=== PATIENT | male | born 1975 | race Caucasian/White ===

== ENCOUNTER 2024-09-28 08:34 | Inpatient (IN) | payer MEDICAID ==
[~2024-09-28] VITALS: Ht 175.3 cm; Wt 71.3 kg
[2024-09-28 10:07] LABS: Hematocrit 48.9 % (41.0-53.0); Hemoglobin 16.8 g/dL (13.5-17.5); Mean Corpuscular Hemoglobin 31.1 pg (28.0-32.0); Mean Corpuscular Hgb Conc. 34.4 g/dL (32.0-36.0); Mean Corpuscular Volume 90.2 fL (80.0-100.0); Platelet Count (auto) 230 10^3/uL (140-450); Red Blood Cells 5.42 10^6/uL (4.5-5.90); Red Cell Distribution Width 13.6 % (11.8-14.3); White Blood Cell 17.4 10^3/uL (4.4-10.8)
[2024-09-28 10:11] LABS: Basophils % (manual) 0 (0.0-2.0); Blast Cells 0; Eosinophils % (manual) 0 (0-7); Metamyelocytes % 0; Myelocytes % 0; Promyelocytes % 0; Reactive Lymphocytes 0
[2024-09-28 10:24] LABS: Calcium 9.5 mg/dL (8.7-10.4)
[2024-09-28 10:25] LABS: Anion Gap 14 (5-15); Carbon Dioxide 22 mmol/L (20-31)
[2024-09-28 10:30] LABS: BUN/Creatinine Ratio 14.6 (10.0-20.0); Blood Urea Nitrogen 18 mg/dL (9-23)
[2024-09-28 10:34] LABS: Chloride 102 mmol/L (98-107); Glucose 221 mg/dL (74-106); Potassium 3.9 mmol/L (3.5-5.1); Sodium 138 mmol/L (136-145)
[2024-09-28 10:46] LABS: Band Neutrophils % (manual) 12; Lymphocytes % (manual) 6 (10.0-50.0); Monocytes % (manual) 3 (0-12); Platelet Estimate Adequate
--- NOTE | 2024-09-28 11:19 | ED.PDOC ---
GI ASSESSMENT HPI Comments 49 year old male presents to the ED with a chief complaint of abdominal pain onset 1 day. Patient has been experiencing diffused abdominal pain as well as nausea/vomiting, diarrhea for the past day. Patient noticed symptoms worsen this morning, came to ED. Denies any PMHx as well as chest pain, dizziness, headache, fever, chills, cough, congestion, dysuria, hematuria. No other symptoms or modifying factors present at this time. Chief Complaint: Abdominal Pain Time Seen by MD: 10:05 Primary Care Provider: NONE Reviewed Notes: Medications, Allergies Allergies: Coded Allergies: NO KNOWN ALLERGIES (Unverified , 09/28/24) Information Source: Patient Mode of Arrival: Ambulatory Timing: Days Duration: Since onset Prehospital treatment: None Quality: Sharp Severity: Moderate Recent: None Recent Hx of: None Pain Location: Diffuse Modifying Factors: Nothing Associated sign and symptoms: Nausea, Vomiting, Diarrhea, Abdominal Pain Past Medical History PAST MEDICAL HISTORY: Denies Surgical History: Denies all surgeries Family History Family History: Reviewed,noncontributory to illness, No family hx of Cancer, No family hx of DM, No family hx of Heart josue, No family hx of HTN, No family hx ofKidney josue, No family hx of Liver josue, No family hx of Lung josue, No family hx of Stroke Social History Smoker: Non-Smoker Alcohol: Denies ETOH Use Drugs: Denies Drug Use Lives In: Home Constitutional: denies: chills, diaphoresis, fatigue, fever, malaise, sweats, weakness, others EENTM: denies: blurred vision, double vision, ear bleeding, ear discharge, ear drainage, ear pain, ear ringing, eye pain, eye redness, hearing loss, mouth pain, mouth swelling, nasal discharge, nose bleeding, nose congestion, nose pain, photophobia, tearing, throat pain, throat swelling, voice changes, others Respiratory: denies: cough, hemoptysis, orthopnea, SOB at rest, shortness of breath, SOB with excertion, stridor, wheezing, others Cardiovascular: denies: chest pain, dizzy spells, diaphoresis, Dyspnea on exertion, edema, irregular heart beat, left arm pain, lightheadedness, palpitations, PND, syncope, others Gastrointestinal: reports: abdominal pain, diarrhea, nausea, vomiting; denies: abdomen distended, blood streaked bowels, constipated, dysphagia, difficulty swallowing, hematemesis, melena, poor appetite, poor fluid intake, rectal bleeding, rectal pain, others Genitourinary: denies: burning, dysuria, flank pain, frequency, hematuria, incontinence, penile discharge, penile sore, pain, testicle pain, testicle swelling, urgency, others Neurological: denies: dizziness, fainting, headache, left sided numbness, left sided weakness, numbness, paresthesia, pre-existing deficit, right sided numbness, right sided weakness, seizure, speech problems, tingling, tremors, weakness, others Musculoskeletal: denies: back pain, gout, joint pain, joint swelling, muscle pain, muscle stiffness, neck pain, others Integumetry: denies: bruises, change in color, change in hair/nails, dryness, laceration, lesions, lumps, rash, wounds, others Allergic/Immunocompromised: denies: Difficulty Healing, Frequent Infections, Hives, Itching, others Hematologic/Lymphatic: denies: anemia, blood clots, easy bleeding, easy bruising, swollen glands, others Endocrine: denies: excessive hunger, excessive sweating, excessive thirst, excessive urination, flushing, intolerance to cold, intolerance to heat, unexplained weight gain, unexplained weight loss, others Psychiatric: denies: anxiety, bipolar disorder, depression, hopeless, panic disorder, schizophrenia, sleepless, suicidal, others All Other Systems: Reviewed and Negative Physical Exam General Appearance: Normal HEENT: Normal ENT Inspection, Pharynx Normal, TMs Normal Neck: Full Range of Motion, Non-Tender, Normal, Normal Inspection Respiratory: Chest Non-Tender, Lungs Clear, No Accessory Muscle Use, No Respiratory Distress, Normal Breath Sounds Cardiovascular: No Edema, No JVD, No Murmur, No Gallop, Normal Peripheral Pulses, Regular Rate/Rhythm Breast Exam: Deferred Gastrointestinal: No Organomegaly, Non Tender, No Pulsatile Mass, Normal Bowel Sounds, Soft Genitalia: Deferred Pelvic: Deferred Rectal: Deferred Extremities: No calf tenderness, Normal capillary refill, Normal inspection, Normal range of motion, Non-tender, No pedal edema Musculoskeletal : Apperance: Normal 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 Was a procedure done?: No GI differential Dx Differential Diagnosis: Appendicitis, Cholecystitis, Gastritis/PUD, Gastroenteritis, UTI, Dehydration X-Ray, Labs, Meds, VS Vital Signs Date Time Temp Pulse Resp B/P (MAP) Pulse Ox O2 Delivery O2 Flow Rate FiO2 09/28/24 12:00 102 20 99 Room Air* 0 21 09/28/24 12:00 98.0 102 20 99/74 (82) 99 98.0 09/28/24 08:39 97.8 93 18 111/59 (76) 98 97.8 Lab Test 09/28/24 10:48 09/28/24 09:28 Range/Units Lactic Acid Level 3.5 *H 0.4-2.0 mmol/L White Blood Count 17.4 H 4.4-10.8 10^3/uL Red Blood Count 5.42 4.5-5.90 10^6/uL Hemoglobin 16.8 13.5-17.5 g/dL Hematocrit 48.9 41.0-53.0 % Mean Corpuscular Volume 90.2 80.0-100.0 fL Mean Corpuscular Hemoglobin 31.1 28.0-32.0 pg Mean Corpuscular Hemoglobin Concent 34.4 32.0-36.0 g/dL Red Cell Distribution Width 13.6 11.8-14.3 % Platelet Count 230 140-450 10^3/uL Mean Platelet Volume 7.7 6.9-10.8 fL Neutrophils (%) (Auto) 37.0-80.0 % Lymphocytes (%) (Auto) 10.0-50.0 % Monocytes (%) (Auto) 0.0-12.0 % Basophils (%) (Auto) 0.0-2.0 % Neutrophils # (Auto) 1.6-8.6 10 ^3/uL Lymphocytes # (Auto) 0.4-5.4 10 ^3/uL Monocytes # (Auto) 0-1.3 10 ^3/uL Differential Total Cells Counted 100.0 100 Neutrophils % (Manual) 79 37.0-80.0 Band Neutrophils % (Manual) 12 Lymphocytes % (Manual) 6 L 10.0-50.0 Monocytes % (Manual) 3 0-12 Eosinophils % (Manual) 0 0-7 Basophils % (Manual) 0 0.0-2.0 Metamyelocytes % (manual) 0 Myelocytes % (Manual) 0 Promyelocytes % (Manual) 0 Blast Cells % (Manual) 0 Reactive Lymphocytes 0 Platelet Estimate Adequate Sodium Level 138 136-145 mmol/L Potassium Level 3.9 3.5-5.1 mmol/L Chloride Level 102 98-107 mmol/L Carbon Dioxide Level 22 20-31 mmol/L Anion Gap 14 5-15 Blood Urea Nitrogen 18 9-23 mg/dL Creatinine 1.23 0.700-1.30 mg/dL Glomerular Filtration Rate Calc 72 >90 mL/min BUN/Creatinine Ratio 14.6 10.0-20.0 Serum Glucose 221 H 74-106 mg/dL Calcium Level 9.5 8.7-10.4 mg/dL Current Medications Medications (Trade) Dose Ordered Sig/Murali Route Start Time Stop Time Status Last Admin Sodium Chloride 1,000 ml @ 1,000 mls/hr Q1H ONCE IV 09/28/24 11:00 09/28/24 11:59 DC 09/28/24 11:40 Ondansetron HCl (Zofran) 4 mg ONCE ONCE IV 09/28/24 11:00 09/28/24 11:01 DC 09/28/24 11:48 Famotidine (Pepcid Injection) 20 mg ONCE ONCE IV 09/28/24 11:00 09/28/24 11:01 DC 09/28/24 11:48 Cefepime HCl 50 ml @ 12.5 mls/hr ONCE ONCE IV 09/28/24 11:00 09/28/24 14:59 09/28/24 11:49 Time of 1ST Reevaluation: 10:35 Reevaluation 1ST: Unchanged Patient Education/Counseling: Diagnosis, Treatment, Prognosis Family Education/Counseling: No Family Present SEPSIS Sepsis Screen Date sepsis recognized/suspect: Sep 28, 2024 Time Sepsis recognized/suspect: 838 Recent Procedure: No On Antibiotic Therapy: No Respiratory Rate >20: No Heart Rate >90: Yes Temp<36 C (96.8 F) or >38.3 C: No SBP <90 or MAP <65 mmHG: No New Acute Mental Status Change: No Is the patient on CPAP, BIPAP,: No Physician Orders Urinalysis (09/28/24 09:19) Blood Culture (09/28/24 10:49) Cefepime 2gm/50ml Ns (Maxipime 2gm/50ml) (09/28/24 11:00) Ct Ab Pel With Iv Con Only (09/28/24 11:15) Sodium Chloride 0.9% (09/28/24 12:15) Metronidazole Ivpb Flagyl (09/28/24 13:00) * Surgical Consult (09/28/24 ) Ondansetron Hcl (Zofran) (09/28/24 13:00) Morphine Sulfate Injection (09/28/24 13:00) Vital Signs Date Time Temp Pulse Resp B/P (MAP) Pulse Ox O2 Delivery O2 Flow Rate FiO2 09/28/24 12:00 102 20 99 Room Air* 0 21 09/28/24 12:00 98.0 102 20 99/74 (82) 99 98.0 09/28/24 08:39 97.8 93 18 111/59 (76) 98 97.8 Laboratory Tests Test 09/28/24 09:28 09/28/24 10:48 White Blood Count 17.4 10^3/uL (4.4-10.8) H Lactic Acid Level 3.5 mmol/L (0.4-2.0) *H Medications Medications Dose Ordered Sig/Murali Route Start Time Stop Time Status Last Admin Dose Admin Cefepime HCl 50 ml @ 12.5 mls/hr ONCE ONCE IV 09/28/24 11:00 09/28/24 14:59 09/28/24 11:49 Famotidine 20 mg ONCE ONCE IV 09/28/24 11:00 09/28/24 11:01 DC 09/28/24 11:48 Ondansetron HCl 4 mg ONCE ONCE IV 09/28/24 11:00 09/28/24 11:01 DC 09/28/24 11:48 Sodium Chloride 1,000 ml @ 1,000 mls/hr Q1H ONCE IV 09/28/24 11:00 09/28/24 11:59 DC 09/28/24 11:40 Departure 1 Departure Time of Disposition: 13:01 (Patient presented with abdominal pain that was concerning for possible appendicits, gastritis, cholecystitis, colitis, gastroenteritis, sbo, or orther possible surgical emergency. Data: 1. I ordered and reviewed the result of at least 3 labs including a CBC, BMP, and Urinalysis. 2. I independently interpreted the following tests: CT Abdoment and Pelvis is concerning for acute appendicitis .Risk:This patient has a high risk of morbidity due to further diagnostic testing or treatment and may suffer from an acute abdominal process disorder. Workup reveals acute appendicitis and patient should be admitted for further workup. and possible expert consultation. ) Impression: Primary Impression: Acute appendicitis Qualified Codes: K35.30 - Acute appendicitis with localized peritonitis, without perforation or gangrene Additional Impression: Intractable abdominal pain Disposition: ADMITTED INPATIENT Admit to: Med Surg Condition: Guarded Critical Care Note Critical Care Time?: Yes Critical care comment: Acute appendicitis and intractable abdominal pain Authorized and Performed by: Irais Alcaraz MD Total critical care time: Approximately 42 minutes Due to a high probability of clinically significant, life threatening deterioration, the patient required my highest level of preparedness to intervene emergently and I personally spent this critical care time directly and personally managing the patient. This critical care time included obtaining a history; examining the patient; pulse oximetry; ordering and review of studies; arranging urgent treatment with development of a management plan; evaluation of patient's response to treatment; frequent reassessment; and, discussions with other providers. This critical care time was performed to assess and manage the high probability of imminent, life-threatening deterioration that could result in multi-organ failure. It was exclusive of separately billable procedures and treating other patients and teaching time. Please see my other sections and the rest of the note for further information on patient assessment and treatment. Stability Stability form required: No I personally scribed for IRAIS ALCARAZ MD ([email or web address]) on 09/28/24 at 11:19. Electronically submitted by Steph Carson ([email or web address]). IRAIS ALCARAZ MD Sep 28, 2024 11:19
[2024-09-28] MEDS: SODIUM CHLORIDE 0.9% 1,000 ML IV ONE ×2 (11:40→15:00)
[2024-09-28] MEDS: ONDANSETRON HCL 4 MG/2 ML VIAL IV ONE ×2 (11:48→14:47)
[2024-09-28] MEDS: FAMOTIDINE (10MG/ML) 2ML VL IV ONE (11:48)
[2024-09-28] MEDS: CEFEPIME 2GM/50ML NS 50 ML IV ONE (11:49)
[2024-09-28 11:50] LABS: Lactic Acid w/Reflex 3.5 mmol/L (0.4-2.0)
[2024-09-28 12:00] VITALS: PULSE 102; RESP 20; O2SAT 99
--- NOTE | 2024-09-28 13:02 | DVH ---
EXAM DESCRIPTION: CT CT AB PEL WITH IV CON ONLY CLINICAL HISTORY: abdominal pain COMPARISON: None TECHNIQUE: CT abdomen and pelvis with IV contrast was performed. Coronal and sagittal MPR images were generated. Omnipaque 300 - 80 mL. CTDI, DLP = 7.69 / 374.56 Dose reduction technique with one or more of the following methods was performed: Automated exposure control, adjustment of the mA and/or kV according to patient size, use of iterative reconstruction te chnique FINDINGS: Lower chest: Clear lung bases. Liver: Homogenous in attenuation. Water attenuation cyst.. Biliary: No calcified gallstones. No gallbladder wall thickening. No pericholecystitc fluid. No bili favio ductal dilatation. Pancreas: No fat stranding or focal lesion. Spleen: Normal in size. Adrenal glands: No nodularity. Kidneys: Symmetric enhancement. No hydroureteronephrosis. . Bladder: No bladder wall thickening. Reproductive organs: Normal. Bowel: The appendix is mildly dilated measuring 10 mm with mild appendiceal wall thickening and peria ppendiceal fat stranding. Edematous wall thickening of the cecum and ascending colon. The remainder o f the colon demonstrates normal caliber and wall thickness. Wall thickening of small bowel loops in t he right lower quadrant, likely reactive. Peritoneum: Small volume pelvic free fluid. No free air. Vessels: Normal caliber abdominal aorta. Lymph nodes: No suspicious lymph nodes. Soft tissues: Unremarkable. . Osseous structures: No acute fracture or subluxation. No suspicious osseous lesions. Degenerative c hanges of the visualized thoracolumbar spine. IMPRESSION: 1. Findings suspicious for acute uncomplicated appendicitis. No evidence of perforation or abscess. S mall volume free fluid in the pelvis. 2. Inflammatory changes of the cecum/ascending colon and small bowel loops in the right lower quadran t, likely reactive. 3. Critical findings discussed with Reginald Alcaraz by Dr. Flor via phone on09/28/2024 12:59 PM.
--- NOTE | 2024-09-28 14:11 | DVHHP2 ---
History of Present Illness Reason for Visit: Abdominal pain History of Present Illness 49-year-old male no surgical history no medical problems chief complaint patient comes in with abdominal pain since yesterday it was a sudden onset of the pain he denies any fever no black stools or blood in his stools no vomiting blood. Patient states that he has never had this type of pain before when evaluating patient's labs and imaging morphine was given Zofran Flagyl normal saline cefepime Pepcid white count was 17.4 lactate was 3.[address] scan of the abdomen pelvis shows uncomplicated appy appendectomy with no perforation and small amount of free pelvic fluid general surgery was consulted for evaluation patient denies drinking smoking or drug use he is currently working with these findings we will admit patient ask for General surgery evaluation continue pain management and antibiotic care Past Medical History See HPI above Past Surgical History See HPI above Family History Reviewed, non-contributory to the management of this case. Past Social History The patient lives at home, denies smoking, alcohol or illicit drugs abuse. Review of Systems Allergies: Coded Allergies: NO KNOWN ALLERGIES (Unverified , 09/28/24) Exam Vital Signs Vital Signs Date Time Temp Pulse Resp B/P (MAP) Pulse Ox O2 Delivery O2 Flow Rate FiO2 09/28/24 12:00 102 20 99 Room Air* 0 21 09/28/24 12:00 98.0 99/74 (82) 98.0 Labs/Xrays CT scan shows uncomplicated appendectomy no perforation I reviewed labs, imaging CT scan abdomen pelvis, EKG and all diagnostic studies on this patient from ED records and the medical chart Labs Test 09/28/24 13:25 09/28/24 09:28 Range/Units Lactic Acid Level 2.5 *H 0.4-2.0 mmol/L White Blood Count 17.4 H 4.4-10.8 10^3/uL Red Blood Count 5.42 4.5-5.90 10^6/uL Hemoglobin 16.8 13.5-17.5 g/dL Hematocrit 48.9 41.0-53.0 % Mean Corpuscular Volume 90.2 80.0-100.0 fL Mean Corpuscular Hemoglobin 31.1 28.0-32.0 pg Mean Corpuscular Hemoglobin Concent 34.4 32.0-36.0 g/dL Red Cell Distribution Width 13.6 11.8-14.3 % Platelet Count 230 140-450 10^3/uL Mean Platelet Volume 7.7 6.9-10.8 fL Neutrophils (%) (Auto) 37.0-80.0 % Lymphocytes (%) (Auto) 10.0-50.0 % Monocytes (%) (Auto) 0.0-12.0 % Basophils (%) (Auto) 0.0-2.0 % Neutrophils # (Auto) 1.6-8.6 10 ^3/uL Lymphocytes # (Auto) 0.4-5.4 10 ^3/uL Monocytes # (Auto) 0-1.3 10 ^3/uL Differential Total Cells Counted 100.0 100 Neutrophils % (Manual) 79 37.0-80.0 Band Neutrophils % (Manual) 12 Lymphocytes % (Manual) 6 L 10.0-50.0 Monocytes % (Manual) 3 0-12 Eosinophils % (Manual) 0 0-7 Basophils % (Manual) 0 0.0-2.0 Metamyelocytes % (manual) 0 Myelocytes % (Manual) 0 Promyelocytes % (Manual) 0 Blast Cells % (Manual) 0 Reactive Lymphocytes 0 Platelet Estimate Adequate Sodium Level 138 136-145 mmol/L Potassium Level 3.9 3.5-5.1 mmol/L Chloride Level 102 98-107 mmol/L Carbon Dioxide Level 22 20-31 mmol/L Anion Gap 14 5-15 Blood Urea Nitrogen 18 9-23 mg/dL Creatinine 1.23 0.700-1.30 mg/dL Glomerular Filtration Rate Calc 72 >90 mL/min BUN/Creatinine Ratio 14.6 10.0-20.0 Serum Glucose 221 H 74-106 mg/dL Calcium Level 9.5 8.7-10.4 mg/dL Assessment/Plan Assessment/Plan acute appendicitis without abscess or perforation found on ct scan ordered zosyn for now ordered morphine as needed for pain ordered general surgery consult fu recs npo for now ordered ivf ordered morphine prn pain acute leukocytosis likely from appy ordered zosyn for now monitor for fever acute sepsis likley from appy elevated lactic and wbc and tachy ordered zosyn for now ordered ivf hydration acute elevation in blood glucose without hx of dm rounding team to order hemoglobin a1c ordered accucheck and sliding scale for now fen/ppx npo for now ivf pepcid no dvt ppx since pt ambulatory scd plan admit to medicine for iv antibiotics and general surgery evaluation Plan discussed with: Patient Date of Service: Sep 28, 2024 Billing Provider: ERICA DUBOIS DNP Common Visit Codes: [id number] INP/OBS CARE (HIGH) ERICA DUBOIS DNP Sep 28, 2024 14:11
[2024-09-28] MEDS: MORPHINE SULFATE 4 MG/ML SYR/VIAL IV ONE (14:48)
[2024-09-28] MEDS: IOHEXOL 300 MG/ML 100ML BOTTLE IJ ONE (15:00)
[2024-09-28] MEDS: metroNIDAZOLE 500MG/100ML 100 ML IV ONE (15:05)
[2024-09-28] MEDS ORDERED: DEXTROSE (50%) 50ML SYRG IV PRN (16:45)
[2024-09-28] MEDS ORDERED: TEMAZEPAM 15 MG CAP PO PRN (16:45)
[2024-09-28] MEDS ORDERED: NITROGLYCERIN 0.4 MG SL TAB SL PRN (16:45)
[2024-09-28] MEDS ORDERED: DOCUSATE SOD 100 MG CAP PO PRN (16:45)
[2024-09-28] MEDS: SODIUM CHLORIDE 0.9% 1,000 ML IV SCH (18:30)
[2024-09-28] MEDS: PANTOPRAZOLE 40 MG/10 ML VIAL INJ IV ONE (18:30)
[2024-09-28] MEDS: ACCU-CHEK COMFORT CURVE STRIP VI SCH (18:33)
[2024-09-28] MEDS: InsuLIN REG 1unit/0.01ml Soln (100units/ml) SC SCH (18:49)
[2024-09-28 19:35] VITALS: PULSE 85; RESP 18; O2SAT 97
[2024-09-28] MEDS: MORPHINE SULFATE INJ 2 MG/ml SYRG IV PRN (20:03)
[2024-09-28] MEDS: ONDANSETRON HCL 4 MG/2 ML VIAL IV PRN (20:03)
[2024-09-28 21:37] LABS: Urine Bacteria None Seen /hpf (None Seen)
[2024-09-28 21:47] LABS: Urine Blood TRACE /uL (Negative); Urine Clarity Clear (Clear); Urine Color Yellow (Yellow); Urine Protein, UAD 1+ (Negative); Urine Squamous Epithelial Cell FEW /hpf (<5); Urine Urobilinogen Normal (Negative); Urine WBC 1 /HPF (0-3)
[2024-09-28 21:51] LABS: Urine Specific Gravity > 1.050 (1.001-1.035)
[2024-09-29 06:00] LABS: Basophils # (auto) 0 10 ^3/uL (0-0.2); Basophils % (auto) 0.2 % (0.0-2.0); Eosinophils # (auto) 0 10 ^3/uL (0-0.8); Eosinophils % (auto) 0.2 % (0.0-7.0); Lymphocytes # (auto) 0.5 10 ^3/uL (0.4-5.4); Lymphocytes % (auto) 5.6 % (10.0-50.0); Mean Corpuscular Hemoglobin 31.4 pg (28.0-32.0); Mean Corpuscular Hgb Conc. 34.9 g/dL (32.0-36.0); Monocytes # (auto) 0.6 10 ^3/uL (0-1.3); Monocytes % (auto) 6.6 % (0.0-12.0); Neutrophils # (auto) 8.2 10 ^3/uL (1.6-8.6); Neutrophils % (auto) 87.4 % (37.0-80.0); Platelet Count (auto) 147 10^3/uL (140-450); Red Blood Cells 4.45 10^6/uL (4.5-5.90); Red Cell Distribution Width 14.1 % (11.8-14.3); White Blood Cell 9.3 10^3/uL (4.4-10.8)
[2024-09-29 06:28] LABS: Alanine Aminotransferase 12 U/L (7-40); Albumin 3.4 g/dL (3.2-4.8); Anion Gap 9 (5-15); Aspartate Aminotransferase 20 U/L (<34); BUN/Creatinine Ratio 18.6 (10.0-20.0); Bilirubin, Total 0.8 mg/dL (0.2-1.0); Blood Urea Nitrogen 19 mg/dL (9-23); Carbon Dioxide 21 mmol/L (20-31); Potassium 3.9 mmol/L (3.5-5.1); Sodium 139 mmol/L (136-145)
[2024-09-29 06:44] LABS: Alkaline Phosphatase 45 U/L (46-116); Calcium 7.8 mg/dL (8.7-10.4); Chloride 109 mmol/L (98-107); Glucose 106 mg/dL (74-106); Total Protein 5.3 g/dL (5.7-8.2)
[2024-09-29] MEDS: ceFAZolin 2 GM/D5W50ml 50 ML IV ONE (07:03)
[2024-09-29] MEDS: POVIDONE IODINE 10 % TOPICAL OINT 30GM TOP ONE (07:21)
[2024-09-29] MEDS ORDERED: MIDAZOLAM HCL 2MG/2ML 2ml VIAL (1mg/ml) ONE (07:27)
[2024-09-29] MEDS ORDERED: HYDROmorphone HCL 2 MG/ML VL/or syr ONE (07:27)
[2024-09-29] MEDS ORDERED: fentaNYL CITRATE 100 MCG/2 ML VL ONE (07:27)
[2024-09-29] MEDS ORDERED: DexAMETHasone SOD PHOS 10MG/1ML VIAL INJ ONE (07:28)
[2024-09-29] MEDS ORDERED: PROPOFOL 10 MG/ML 20 ML IV ONE (07:28)
[2024-09-29] MEDS ORDERED: ROCURONIUM 10MG/ML 10ML VIAL IV ONE (07:28)
[2024-09-29 07:30] LABS: INR 1.13 (0.9-1.15); Partial Thromboplastin Time 30.2 SEC (24.5-34.5); Prothrombin Time 11.8 sec (9.3-11.8)
[2024-09-29] MEDS ORDERED: hydrALAZINE HCL 20 MG/ML VL IV PRN (08:15)
[2024-09-29] MEDS: KETOROLAC TROMETH 30 MG/ML 1ML VIAL IV ONE (08:15)
[2024-09-29] MEDS ORDERED: MORPHINE SULFATE 4 MG/ML SYR/VIAL IV PRN (08:15)
[2024-09-29] MEDS ORDERED: ePHEDrine SULFATE 50 MG/ML AMP IV PRN (08:15)
[2024-09-29] MEDS ORDERED: MIDAZOLAM HCL 2MG/2ML 2ml VIAL (1mg/ml) IV PRN (08:15)
[2024-09-29] MEDS ORDERED: SUGAMMADEX 200mg/2ml Vial (100MG/ML) IV ONE (08:28)
[2024-09-29 08:41] VITALS: PULSE 96; RESP 17; O2SAT 96
[2024-09-29] MEDS ORDERED: ONDANSETRON HCL 4 MG/2 ML VIAL IV PRN (08:45)
[2024-09-29] MEDS: HYDROmorphone HCL 2 MG/ML VL/or syr IV ONE (08:45)
[2024-09-29] MEDS: LIDOCAINE W/ EPINEPHRINE 1% 20ML VIAL ONE (09:05)
[2024-09-29] MEDS: BUPIVACAINE 0.5% P/F INJ 10 ML VIAL ONE (09:05)
[2024-09-29] MEDS: HYDROmorphone HCL 2 MG/ML VL/or syr IV PRN (09:05)
--- NOTE | 2024-09-29 09:08 | DVHOP ---
DATE OF SURGERY: 09/29/2024 PREOPERATIVE DIAGNOSIS: Acute appendicitis. POSTOPERATIVE DIAGNOSIS: Acute gangrenous appendicitis. SURGEON: Kenneth Sharma MD. ANESTHESIA: General endotracheal. ANESTHESIOLOGIST: Dr. Garcia. DESCRIPTION OF PROCEDURE: Under general anesthesia with the patient's skin prepped and draped, a supraumbilical incision was made and a Veress needle inserted by the hanging drop technique in order to establish pneumoperitoneum to 15 mmHg pressure by insufflation with carbon dioxide. With the abdomen fully distended, the needle was removed and replaced with a 5 mm trocar port through which a 0-degree viewing laparoscope was inserted. Under direct vision, an additional 5 mm port and 10 mm ports were inserted through the midline abdominal wall in the subxiphoid position and the infraumbilical position respectively. The laparoscopy was performed revealing no obvious unexpected pathology on any serosal surfaces visualized. The diagnosis of acute suppurative appendicitis was confirmed by laparoscopy. The appendix appeared partially gangrenous. It was located in the low pelvis adjacent to the rectum. It was quite difficult to deliver, however, with meticulous caution to prevent rupture of this appendix, it was delivered intact to the position and traced to the confluence with the cecum. The appendix was then transected with an Endo BEN at the base of the appendix at the confluence of the cecum using vascular jeffery. The appendix and mesoappendix were transected where the specimen was placed into a specimen extraction bag, which was retrieved from the abdominal cavity through the infraumbilical 10 mm port site. The right lower quadrant was profusely irrigated. Irrigant was aspirated. Hemostasis was meticulously inspected and found to be complete. No evidence of bleeding from the appendicectomy site or from the port sites being encountered. The right lower quadrant again irrigated with approximately 1 liter of saline. A 10 mm Ion-Penn drain was placed into the position where the appendix resided so as to lessen the likelihood of postoperative abscess formation due to the gangrenous nature of the appendix. The drain was exteriorized through the 5 mm port site above the umbilicus and secured with a 2-0 nylon suture. Instrumentation was withdrawn. Pneumoperitoneum was evacuated. Fascial defect closed using #0 Vicryl. Metallic skin jeffery were used for approximation of the skin. The patient remained stable throughout the procedure, left the operating room following an accurate needle and sponge counts. MD JOHN Price/DEBBY/SANDRITA TID: [id number] RECEIPT: [id number]
[2024-09-29] MEDS: ACETAMINOPHEN IV 1000 MG/100ML (10MG/ML) IV ONE (09:10)
[2024-09-29] MEDS: ACETAMINOPHEN IV 100 ML IV ONE (09:10)
--- NOTE | 2024-09-29 09:55 | DVHINCON2 ---
HISTORY AND PRESENT ILLNESS: The patient was evaluated prior to the operation in the preop area. The dictation is delayed due to technical factors. When evaluated in the preop area, the patient is a 49-year-old male, no prior history of any operations on his abdomen or chest, healthy individual, who is an occasional pot smoker, however, he does not smoke cigarettes, does not drink alcohol, uses no illicit drugs, and has no known medicinal allergies. He takes no prescribed medications. He has no prior medical conditions or diagnoses. The patient presented to the Emergency Room with a 48-hour history of abdominal pain, which was distributed over the lower abdomen, mostly in the right lower quadrant. The patient underwent a laboratory evaluation, which showed a lactic acid elevation of 2.5. The patient had a white cell count of 17.4. The patient's platelet count was normal. He had a CT scan of the abdomen on admission, which showed suspicious findings for acute uncomplicated appendicitis without evidence of perforation or abscess formation. A small volume of free fluid in the pelvis was encountered. Some reactive inflammatory changes in the cecum and ascending colon. PHYSICAL EXAMINATION: ABDOMEN: Soft abdomen, which was slightly distended, tender in the right lower quadrant with positive Rovsing, obturator and psoas signs. The patient also has rebound tenderness in the right lower quadrant. ASSESSMENT AND PLAN: Diagnosis is consistent with acute appendicitis. The operation of laparoscopic possibly open appendectomy, potential risks and complications were explained in detail. MD JOHN Price/BRUNO TID: [id number] RECEIPT: [id number]
[2024-09-29] MEDS ORDERED: PANTOPRAZOLE 40 MG/10 ML VIAL INJ IV SCH (10:00)
[2024-09-29] MEDS: PANTOPRAZOLE 40 MG/10 ML VIAL INJ IV SCH (10:09)
[2024-09-29] MEDS: D5W/SOD CHL 0.45%/KCL 20MEQ 1,000 ML IV SCH (10:20)
[2024-09-29] MEDS: HYDROmorphone HCL 2 MG/ML VL/or syr ONE (11:28)
[2024-09-29] MEDS: ONDANSETRON HCL 4 MG/2 ML VIAL IV ONE (11:30)
--- NOTE | 2024-09-29 12:07 | DVHPN2 ---
Subjective Denies any symptoms Reviewed: Care Plan, H&P, Labs, Medications, Previous Orders Changes from previous H/P or p: No Changes General: Per HPI Objective Vitals Vital Signs Date Time Temp Pulse Resp B/P (MAP) Pulse Ox O2 Delivery O2 Flow Rate FiO2 09/29/24 10:11 74 18 119/86 (97) 96 09/29/24 08:41 Nasal Cannula 3.0 96 09/29/24 08:41 97.4 97.4 Intake/Output Intake and Output 09/29/24 07:00 Intake Total 1160 ml Balance 1160 ml Intake IV Total 1160 ml Exam Patient assessed in PACU General Appearance: Alert, Cooperative, No acute distress, Other (Still solmnolent from anesthesia) HEENT: Atraumatic, PERRLA Cardiovascular: Normal S1, Normal S2 Musculoskeletal: Normal sensory function, Normal motor function Skin: Dry, Intact Medications Current Medications Medications Dose Ordered Sig/Murali Route Start Time Stop Time Status Last Admin Dose Admin Temazepam 15 mg QHSP PRN PO 09/28/24 16:45 Docusate Sodium 100 mg BIDPRN PRN PO 09/28/24 16:45 Morphine Sulfate 2 mg Q4HPRN PRN IV 09/28/24 16:45 09/29/24 03:11 2 MG Nitroglycerin 0.4 mg Q5MINP PRN SL 09/28/24 16:45 Diagnostic Test (Pha) 1 strip Q6HR 09/28/24 18:00 09/29/24 00:00 1 STRIP Insulin Human Regular Q6HR SC 09/28/24 18:00 Dextrose 50 ml UD PRN IV 09/28/24 16:45 Potassium Chloride/Dextrose/ Sod Cl 1,000 ml @ 120 mls/hr Q8H20M IV 09/29/24 08:45 09/29/24 10:20 120 MLS/HR Cefazolin Sodium/ Dextrose 50 ml @ 50 mls/hr Q8HR IV 09/29/24 14:00 Metronidazole 100 ml @ 100 mls/hr Q8HR IV 09/29/24 14:00 Ondansetron HCl 4 mg Q4HPRN PRN IV 09/29/24 08:45 Pantoprazole Sodium 40 mg DAILY IV 09/29/24 10:00 09/29/24 10:09 40 MG Laboratory Results Laboratory Tests 09/29/24 05:17 Chemistry Test 09/29/24 05:17 Albumin 3.4 g/dL (3.2-4.8) Calcium Level 7.8 mg/dL (8.7-10.4) L Total Protein 5.3 g/dL (5.7-8.2) L Coagulation Test 09/29/24 05:17 Prothrombin Time 11.8 sec (9.3-11.8) Prothrombin Time INR 1.13 (0.9-1.15) Activated Partial Thromboplast Time 30.2 SEC (24.5-34.5) LFT Test 09/29/24 05:17 Alanine Aminotransferase (ALT) 12 U/L (7-40) Alkaline Phosphatase 45 U/L (46-116) L Aspartate Amino Transferase (AST) 20 U/L (<34) Total Bilirubin 0.8 mg/dL (0.2-1.0) Urinalysis Test 09/28/24 21:35 Urine Color Yellow (Yellow) Urine Clarity Clear (Clear) Urine pH 6.0 (5.0-9.0) Urine Specific [place] > 1.050 (1.001-1.035) Urine Protein 1+ (Negative) H Urine Ketones Trace (Negative) Urine Blood Trace /uL (Negative) H Urine Nitrite Negative (Negative) Urine Bilirubin Negative (Negative) Urine Urobilinogen Normal mg/dL (Negative) Urine Leukocyte Esterase Negative /uL (Negative) Urine RBC 2 /hpf (0 - 3) Urine Microscopic WBC 1 /HPF (0-3) Urine Squamous Epithelial Cells Few /hpf (<5) Urine Bacteria None seen /hpf (None Seen) Urine Glucose Normal mg/dL (Normal) Microbiology Microbiology Date/Time Source Procedure Growth Status 09/28/24 10:58 Blood Blood Culture - Preliminary NO GROWTH AFTER 24 HOURS OF INCUBATION. Resulted Labs and/or images reviewed: Labs reviewed by me, Image(s) reviewed by me Assessment/Plan Assessment/Plan Impression: -Sepsis -Acute Appendicitis -Bradycardia Plan: S/P Appendectomy. Bradycardic post-op -EKG -Transfer to Telemetry -Cardiology Consult was placed -IV abx with Ancef, Flagyl -PPI -Pain management -ADAT. -Repeat labs in AM. Total time spent with pt. 35 min. Plan discussed with: Patient, Other (RN) My Orders Orders - MITA NEUMANN NP Procedure Category Date Status Time Basic Metabolic Panel LAB 09/30/24 Verified 04:00 Electrocardigram EKG 09/29/24 Verified 12:01 Date of Service: Sep 29, 2024 Billing Provider: MITA NEUMANN NP Common Visit Codes: [id number] INP/OBS CARE(HIGH) MITA NEUMANN NP Sep 29, 2024 12:07
[2024-09-29] MEDS: metroNIDAZOLE 500MG/100ML 100 ML IV SCH (13:25)
[2024-09-29] MEDS: ceFAZolin 2 GM/D5W50ml 50 ML IV SCH (14:30)
--- NOTE | 2024-09-29 15:40 | ECG ---
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
[2024-09-29 17:40] VITALS: PULSE 52; RESP 20; O2SAT 93
[2024-09-29 18:33] VITALS: BP 118/76; PULSE 61; RESP 16; TEMP 96.4; O2SAT 98
[2024-09-29 20:00] VITALS: PULSE 60; PULSE 64; RESP 17; O2SAT 98
[2024-09-29 21:00] VITALS: BP 107/76; PULSE 60; RESP 17; TEMP 97.8; O2SAT 98
[2024-09-30] VITALS (7 sets, daily range): BP systolic 109–132; BP diastolic 76–92; PULSE 55–79; RESP 16–57; TEMP 97.2–99; O2SAT 96–99
[2024-09-30 07:23] LABS: Sodium 141 mmol/L (136-145)
[2024-09-30 07:24] LABS: Anion Gap 9 (5-15); Carbon Dioxide 24 mmol/L (20-31); Chloride 108 mmol/L (98-107)
[2024-09-30 07:29] LABS: Blood Urea Nitrogen 17 mg/dL (9-23); Glucose 104 mg/dL (74-106)
[2024-09-30 07:33] LABS: Basophils # (auto) 0 10 ^3/uL (0-0.2); Basophils % (auto) 0.1 % (0.0-2.0); Eosinophils # (auto) 0 10 ^3/uL (0-0.8); Hematocrit 40.4 % (41.0-53.0); Hemoglobin 13.9 g/dL (13.5-17.5); Lymphocytes # (auto) 0.6 10 ^3/uL (0.4-5.4); Lymphocytes % (auto) 4.9 % (10.0-50.0); Mean Corpuscular Hemoglobin 31.1 pg (28.0-32.0); Mean Corpuscular Hgb Conc. 34.4 g/dL (32.0-36.0); Mean Corpuscular Volume 90.4 fL (80.0-100.0); Monocytes # (auto) 0.7 10 ^3/uL (0-1.3); Monocytes % (auto) 5.8 % (0.0-12.0); Neutrophils # (auto) 10.8 10 ^3/uL (1.6-8.6); Neutrophils % (auto) 89.2 % (37.0-80.0); Platelet Count (auto) 162 10^3/uL (140-450); Red Blood Cells 4.47 10^6/uL (4.5-5.90); Red Cell Distribution Width 13.7 % (11.8-14.3); White Blood Cell 12.2 10^3/uL (4.4-10.8)
[2024-09-30 09:21] LABS: Triglycerides 90 mg/dL (< 150)
[2024-09-30 09:22] LABS: LDL Cholesterol 63 mg/dL (< 100)
[2024-09-30 09:23] LABS: Cholesterol 110 mg/dL (< 200)
[2024-09-30 09:25] LABS: HDL Cholesterol 28 mg/dL (40-59)
--- NOTE | 2024-09-30 11:00 | DVHINCON2 ---
Date Seen: Sep 30, 2024 Referring Physician TONIA Jeffries Reason for Consultation New bradycardia History of Present Illness A 49-year-old male with no significant past medical history presented in the emergency department with sudden onset right lower quadrant abdominal pain. Clinical evaluation and imaging confirmed the acute appendicitis, and the patient underwent an appendectomy. During the initial assessment the patient was noted to have bradycardia. A 12 lead EKG confirmed sinus bradycardia. Cardiology was consulted. The patient denies symptoms associated with low heart rate such as dizziness, syncope, fatigue, or chest pain. He also denies any personal or family history of cardiovascular disease and reports not taking beta blockers or any other medications. Past Medical History Denies Past Surgical History Denies Family History: FH: colon cancer G8 FATHER Hypertension G8 MOTHER Family History Reviewed, non-contributory to the management of this case. Social History The patient lives at home, denies smoking, alcohol or illicit drugs abuse. Allergies: Coded Allergies: NO KNOWN ALLERGIES (Unverified , 09/28/24) Current Medications Current Medications Medications (Trade) Dose Ordered Sig/Murali Route PRN Reason Start Time Stop Time Status Last Admin Cefazolin Sodium/ Dextrose 50 ml @ 50 mls/hr Q8HR IV 09/29/24 14:00 09/30/24 05:23 Metronidazole 100 ml @ 100 mls/hr Q8HR IV 09/29/24 14:00 09/30/24 06:40 Review of Systems Constitutional: Reports abdominal pain, bradycardia Ears, Nose, & Throat: No symptom reported Eyes: No symptom reported Neurological: No symptoms reported Pulmonary/Respiratory: Denies shortness of breath or cough Cardiovascular: Denies chest pain, palpitation, syncope, Gastrointestinal: No symptom reported Genitourinary: No symptom reported Musculoskeletal: No symptom reported Skin: No symptom reported Psychiatric: No symptom reported Endocrine: No symptom reported Hematologic/Lymphatic: No symptom reported Vital Signs Vital Signs Date Time Temp Pulse Resp B/P (MAP) Pulse Ox O2 Delivery O2 Flow Rate FiO2 09/30/24 09:00 97.2 79 57 121/85 (97) 97 97.2 09/29/24 20:00 Room Air* 0 21 Physical Exam INITIAL VITAL SIGNS: Reviewed by me GENERAL: Alert and oriented, appears mildly ill HEAD: Head is normocephalic and atraumatic. EYES: EOMI, PERRL. No scleral icterus. No conjunctival injection. ENT: Moist mucous membranes. NECK: Supple, No masses, Full range of motion. RESPIRATORY: Clear breath sounds bilaterally, no wheezing or rales CV: Bradycardic, regular rhythm, no murmurs, rubs or gallops GI/: Active bowel sounds, soft, nondistended, nontender. No guarding. No rebound. No masses. No CVA tenderness. INTEGUMENTARY: Warm and dry. No obvious rashes. NEUROLOGIC: Alert and oriented. Face is symmetric. Speech is normal. Moves all extremities equally. Labs/Diagnostic Data Labs Test 09/30/24 06:38 09/30/24 05:09 09/29/24 05:17 09/28/24 21:35 Range/Units White Blood Count 12.2 #H 4.4-10.8 10^3/uL Red Blood Count 4.47 L 4.5-5.90 10^6/uL Hemoglobin 13.9 13.5-17.5 g/dL Hematocrit 40.4 L 41.0-53.0 % Mean Corpuscular Volume 90.4 80.0-100.0 fL Mean Corpuscular Hemoglobin 31.1 28.0-32.0 pg Mean Corpuscular Hemoglobin Concent 34.4 32.0-36.0 g/dL Red Cell Distribution Width 13.7 11.8-14.3 % Platelet Count 162 140-450 10^3/uL Mean Platelet Volume 8.3 6.9-10.8 fL Neutrophils (%) (Auto) 89.2 H 37.0-80.0 % Lymphocytes (%) (Auto) 4.9 L 10.0-50.0 % Monocytes (%) (Auto) 5.8 0.0-12.0 % Eosinophils (%) (Auto) 0.0 0.0-7.0 % Basophils (%) (Auto) 0.1 0.0-2.0 % Neutrophils # (Auto) 10.8 H 1.6-8.6 10 ^3/uL Lymphocytes # (Auto) 0.6 0.4-5.4 10 ^3/uL Monocytes # (Auto) 0.7 0-1.3 10 ^3/uL Eosinophils # (Auto) 0 0-0.8 10 ^3/uL Basophils # (Auto) 0 0-0.2 10 ^3/uL Nucleated Red Blood Cells 0.0 % Sodium Level 141 136-145 mmol/L Potassium Level 4.0 3.5-5.1 mmol/L Chloride Level 108 H 98-107 mmol/L Carbon Dioxide Level 24 20-31 mmol/L Anion Gap 9 5-15 Blood Urea Nitrogen 17 9-23 mg/dL Creatinine 1.00 0.700-1.30 mg/dL Glomerular Filtration Rate Calc 92 >90 mL/min BUN/Creatinine Ratio 17.0 10.0-20.0 Serum Glucose 104 74-106 mg/dL Hemoglobin A1c 5.6 <5.7 % A1C Calcium Level 9.0 8.7-10.4 mg/dL Triglycerides Level 90 < 150 mg/dL Cholesterol Level 110 < 200 mg/dL LDL Cholesterol 63 < 100 mg/dL HDL Cholesterol 28 L 40-59 mg/dL Thyroid Stimulating Hormone (TSH) 3.43 0.55-4.78 uIU/mL POC Glucose 135 H 70-106 mg/dl Prothrombin Time 11.8 9.3-11.8 sec Prothrombin Time INR 1.13 0.9-1.15 Activated Partial Thromboplast Time 30.2 24.5-34.5 SEC Total Bilirubin 0.8 0.2-1.0 mg/dL Aspartate Amino Transferase (AST) 20 <34 U/L Alanine Aminotransferase (ALT) 12 7-40 U/L Alkaline Phosphatase 45 L 46-116 U/L Total Protein 5.3 L 5.7-8.2 g/dL Albumin 3.4 3.2-4.8 g/dL Urine Color Yellow Yellow Urine Clarity Clear Clear Urine pH 6.0 5.0-9.0 Urine Specific [place] > 1.050 H 1.001-1.035 Urine Protein 1+ H Negative Urine Ketones Trace Negative Urine Blood Trace H Negative /uL Urine Nitrite Negative Negative Urine Bilirubin Negative Negative Urine Urobilinogen Normal Negative mg/dL Urine Leukocyte Esterase Negative Negative /uL Urine RBC 2 0 - 3 /hpf Urine Microscopic WBC 1 0-3 /HPF Urine Squamous Epithelial Cells Few <5 /hpf Urine Bacteria None seen None Seen /hpf Urine Glucose Normal Normal mg/dL Test 09/28/24 17:08 09/28/24 09:28 Range/Units Lactic Acid Level 1.4 0.4-2.0 mmol/L Differential Total Cells Counted 100.0 100 Neutrophils % (Manual) 79 37.0-80.0 Band Neutrophils % (Manual) 12 Lymphocytes % (Manual) 6 L 10.0-50.0 Monocytes % (Manual) 3 0-12 Eosinophils % (Manual) 0 0-7 Basophils % (Manual) 0 0.0-2.0 Metamyelocytes % (manual) 0 Myelocytes % (Manual) 0 Promyelocytes % (Manual) 0 Blast Cells % (Manual) 0 Reactive Lymphocytes 0 Platelet Estimate Adequate Microbiology Date/Time Source Procedure Growth Status 09/29/24 08:48 Abdomen Gram Stain - Final Resulted 09/29/24 08:48 Abdomen Anaerobic Culture - Preliminary Resulted 09/29/24 08:48 Abdomen Aerobic Culture - Preliminary Resulted 09/28/24 17:08 Blood Blood Culture - Preliminary NO GROWTH AFTER 24 HOURS OF INCUBATION. Resulted PROCEDURE(s): ABPLIV - CT AB PEL WITH IV CON ONLY REASON: abdominal pain ORDER NUMBER(s): [id number], ACCESSION NUMBER(s): [id number] EXAM DESCRIPTION: CT CT AB PEL WITH IV CON ONLY CLINICAL HISTORY: abdominal pain COMPARISON: None TECHNIQUE: CT abdomen and pelvis with IV contrast was performed. Coronal and sagittal MPR images were generated. Omnipaque 300 - 80 mL. CTDI, DLP = 7.69 / 374.56 Dose reduction technique with one or more of the following methods was performed: Automated exposure control, adjustment of the mA and/or kV according to patient size, use of iterative reconstruction technique FINDINGS: Lower chest: Clear lung bases. Liver: Homogenous in attenuation. Water attenuation cyst.. Biliary: No calcified gallstones. No gallbladder wall thickening. No p ericholecystitc fluid. No biliary ductal dilatation. Pancreas: No fat stranding or focal lesion. Spleen: Normal in size. Adrenal glands: No nodularity. Kidneys: Symmetric enhancement. No hydroureteronephrosis. . Bladder: No bladder wall thickening. Reproductive organs: Normal. Bowel: The appendix is mildly dilated measuring 10 mm with mild appendiceal wall thickening and periappendiceal fat stranding. Edematous wall thickening of the cecum and ascending colon. The remainder of the colon demonstrates normal caliber and wall thickness. Wall thickening of small bowel loops in the right lower quadrant, likely reactive. Peritoneum: Small volume pelvic free fluid. No free air. Vessels: Normal caliber abdominal aorta. Lymph nodes: No suspicious lymph nodes. Soft tissues: Unremarkable. . Osseous structures: No acute fracture or subluxation. No suspicious osseous lesions. Degenerative changes of the visualized thoracolumbar spine. IMPRESSION: 1. Findings suspicious for acute uncomplicated appendicitis. No evidence of perforation or abscess. Small volume free fluid in the pelvis. 2. Inflammatory changes of the cecum/ascending colon and small bowel loops in the right lower quadrant, likely reactive. 3. Critical findings discussed with Reginald Alcaraz by Dr. Flor via phone on09/28/2024 12:59 PM. Assessment Bradycardia Sepsis Appendicitis s/p appendectomy Plan/Recommendation (Dr. Liu ): Bradycardia * Sinus bradycardia noted on initial EKG, patient remains asymptomatic * Telemetry review over the past 24 hours shows no bradyarrhythmia, tachyarrhythmia, or evidence of sick sinus syndrome. * Order TSH to evaluate for hypothyroidism, lipid panel to assess for dyslipidemia, A1c to evaluate for diabetes * Order transthoracic echocardiogram to assess for structural cardiac abnormalities If inpatient workup is unremarkable and telemetry remained stable, recommend outpatient cardiology follow-up for further monitoring and evaluation. This medical document was created using an electronic medical record system with voice recognition software and computerized dictation system. Although this document has been carefully reviewed, there might still be some phonetic and typographical errors. Occasional wrong-word or ``sound-alike substitutions may have occurred due to the inherent limitations of voice recognition software. These areas are purely typographical due to imperfections of the software programs and do not reflect any compromise in the patient's medical care. Please read the chart carefully and recognize, using context, where these substitutions have occurred. Plan discussed with: Patient Plan discussed with: Patient NYHA Physical activity limitations: NA Date of Service: Sep 30, 2024 Billing Provider: CINDY LIU MD Cardiology Common Codes: CONSULT ONLY Cardiology Consultation Codes: [id number] CONSULT <45MIN SOLOMON FRANZ [employer] Sep 30, 2024 11:00
--- NOTE | 2024-09-30 11:45 | DVHPN2 ---
Subjective Denies any symptoms Reviewed: Care Plan, H&P, Labs, Medications, Previous Orders Changes from previous H/P or p: No Changes General: Per HPI Objective Vitals Vital Signs Date Time Temp Pulse Resp B/P (MAP) Pulse Ox O2 Delivery O2 Flow Rate FiO2 09/30/24 09:00 97.2 79 57 121/85 (97) 97 97.2 09/29/24 20:00 Room Air* 0 21 Intake/Output Intake and Output 09/30/24 07:00 Intake Total 620 ml Output Total 2035 ml Balance -1415 ml Intake Oral 470 ml IV Total 150 ml Output Urine Total 1700 ml Gastric Drainage Total 75 ml Drainage Total 260 ml Exam Patient assessed in PACU General Appearance: Alert, Oriented X3, Cooperative, No acute distress, Other (Still solmnolent from anesthesia) HEENT: Atraumatic, PERRLA Cardiovascular: Normal S1, Normal S2 Musculoskeletal: Normal sensory function, Normal motor function Skin: Dry, Intact Psych/Mental Status: Mental status NL, Mood NL Medications Current Medications Medications Dose Ordered Sig/Murali Route Start Time Stop Time Status Last Admin Dose Admin Temazepam 15 mg QHSP PRN PO 09/28/24 16:45 Docusate Sodium 100 mg BIDPRN PRN PO 09/28/24 16:45 Morphine Sulfate 2 mg Q4HPRN PRN IV 09/28/24 16:45 09/30/24 05:01 2 MG Nitroglycerin 0.4 mg Q5MINP PRN SL 09/28/24 16:45 Diagnostic Test (Pha) 1 strip Q6HR 09/28/24 18:00 09/30/24 11:17 1 STRIP Insulin Human Regular Q6HR SC 09/28/24 18:00 09/30/24 05:51 2 UNITS Dextrose 50 ml UD PRN IV 09/28/24 16:45 Potassium Chloride/Dextrose/ Sod Cl 1,000 ml @ 120 mls/hr Q8H20M IV 09/29/24 08:45 09/29/24 21:18 120 MLS/HR Cefazolin Sodium/ Dextrose 50 ml @ 50 mls/hr Q8HR IV 09/29/24 14:00 09/30/24 05:23 50 MLS/HR Metronidazole 100 ml @ 100 mls/hr Q8HR IV 09/29/24 14:00 09/30/24 06:40 100 MLS/HR Ondansetron HCl 4 mg Q4HPRN PRN IV 09/29/24 08:45 Pantoprazole Sodium 40 mg DAILY IV 09/29/24 10:00 09/30/24 10:56 40 MG Laboratory Results Laboratory Tests 09/30/24 06:38 Chemistry Test 09/30/24 06:38 Calcium Level 9.0 mg/dL (8.7-10.4) Lipid panel Test 09/30/24 06:38 Cholesterol Level 110 mg/dL (< 200) HDL Cholesterol 28 mg/dL (40-59) L Triglycerides Level 90 mg/dL (< 150) HgA1c, TSH Test 09/30/24 06:38 Hemoglobin A1c 5.6 % A1C (<5.7) Thyroid Stimulating Hormone (TSH) 3.43 uIU/mL (0.55-4.78) Urinalysis Test 09/28/24 21:35 Urine Color Yellow (Yellow) Urine Clarity Clear (Clear) Urine pH 6.0 (5.0-9.0) Urine Specific [place] > 1.050 (1.001-1.035) Urine Protein 1+ (Negative) H Urine Ketones Trace (Negative) Urine Blood Trace /uL (Negative) H Urine Nitrite Negative (Negative) Urine Bilirubin Negative (Negative) Urine Urobilinogen Normal mg/dL (Negative) Urine Leukocyte Esterase Negative /uL (Negative) Urine RBC 2 /hpf (0 - 3) Urine Microscopic WBC 1 /HPF (0-3) Urine Squamous Epithelial Cells Few /hpf (<5) Urine Bacteria None seen /hpf (None Seen) Urine Glucose Normal mg/dL (Normal) Microbiology Microbiology Date/Time Source Procedure Growth Status 09/29/24 08:48 Abdomen Gram Stain - Final Resulted 09/29/24 08:48 Abdomen Anaerobic Culture - Preliminary Resulted 09/29/24 08:48 Abdomen Aerobic Culture - Preliminary Resulted 09/28/24 17:08 Blood Blood Culture - Preliminary NO GROWTH AFTER 24 HOURS OF INCUBATION. Resulted Labs and/or images reviewed: Labs reviewed by me, Image(s) reviewed by me Assessment/Plan Assessment/Plan Impression: -Sepsis -Acute Appendicitis, with gangrene -Bradycardia Plan: Events: Bradycardia resolved. Continues to have leukocytosis. Afebrile. Abdominal dressing benign. Patient tolerating diet. Positive bowel sounds -cardiology consultation: Echocardiogram pending -social consultation: Recommendations reviewed -IV abx with Ancef, Flagyl -PPI -Pain management -advanced to full liquid diet -Repeat labs in AM. Total time spent with patient discussing and formulating plan of care: 35 minutes. This medical document was created using an electronic medical record system with [employer] system. Although this document has been carefully reviewed, there may still be some phonetic and typographical errors. These areas are purely typographical due to imperfections of the software programs, and do not reflect any compromise in the patient's medical care. Plan discussed with: Patient, Other (RN) My Orders Orders - MITA NEUMANN NP Procedure Category Date Status Time Electrocardigram EKG 09/29/24 Resulted 12:01 Hydrocodone-Acet PHA 09/30/24 Transmitted 5/325mg Tab ([place] 11:45 Full Liq Diet DIET 09/30/24 Transmitted Lunch Date of Service: Sep 30, 2024 Billing Provider: MITA NEUMANN NP Common Visit Codes: [id number] INP/OBS CARE(HIGH) MITA NEUMANN NP Sep 30, 2024 11:45
[2024-09-30] MEDS: HYDROcodone-ACET 5/325MG TAB PO PRN (13:02)
--- NOTE | 2024-09-30 18:55 | DVHSR ---
APPROVED REPORT EXAM: Two-dimensional and M-mode echocardiogram with Doppler and color Doppler. Blood Pressure: 119/84 mmHg INDICATION Daren RISK FACTORS Height: 5'9", Weight: 147 DIMENSIONS LVDd4.8 (3.8-5.7cm)LA (2D)3.5 (1.9-4.0cm)Aortic Root3.9 (2.0-3.7cm) LVDs3.4 (2.5-4.0cm)LA (MM) (1.9-4.0cm)Aortic Cusp Exc1.9 (1.5-2.0cm) EF (%) 55.0 (55-70%)Rt. Atrium4.2 (1.9-4.0cm)Asc. Aorta cm IVSd1.0 (0.7-1.1cm)RV (D)4.0 (1.8-2.4cm) PWd1.0 (0.7-1.1cm) Mitral Valve MitralMitral Stenosis E wave0.63m/sMV Mean GR.mmHg A wave0.59m/sMV Peak GR.mmHg E/A ratio1.12D MVAcm2 DECEL [id number] 1/2 Tim[place] Aortic Valve Aortic ValveAortic Stenosis V11.06m/Juanito Mean GR.4mmHg V21.28m/Juanito Peak GR.7mmHg LVOT Diameter2.1 (1.8-2.4cm)Doppler AVA2.87cm2 Pulmonic Valve V20.76m/s Other Information Technically limited study due to patient position, patient has abdominal band s/p surgery. Conclusion NORMAL LV EF IS 60% NORMAL VALVES NO EFFUSION NORMAL RV FUNCTION
--- NOTE | 2024-09-30 23:10 | DVHINCON2 ---
Date Seen: Sep 30, 2024 Referring Physician TONIA Jeffries Reason for Consultation New bradycardia History of Present Illness This is a 49-year-old male with no significant past medical history presented to the emergency department with complaints of sudden onset right lower quadrant abdominal pain. Clinical evaluation and imaging confirmed the acute appendicitis, and the patient underwent an appendectomy. During the initial ass essment the patient was noted to have bradycardia. A 12 lead EKG confirmed sinus bradycardia. Cardiology was consulted. Patient denies symptoms associated with low heart rate such as dizziness, syncope, fatigue, or chest pain. He also denies any personal or family history of cardiovascular disease and reports not taking beta blockers or any other medications. Past Medical History Denies Past Surgical History Denies Family History: FH: colon cancer G8 FATHER Hypertension G8 MOTHER Allergies: Coded Allergies: NO KNOWN ALLERGIES (Unverified , 09/28/24) Current Medications Current Medications Medications (Trade) Dose Ordered Sig/Murali Route PRN Reason Start Time Stop Time Status Last Admin Acetaminophen/ Hydrocodone Bitart ([place] 5/325MG Tab) 1 tab Q6HPRN PRN PO MODERATE PAIN (4-6 PAIN SCALE) 09/30/24 11:45 09/30/24 13:02 Review of Systems Constitutional: Reports abdominal pain, bradycardia Ears, Nose, & Throat: No symptom reported Eyes: No symptom reported Neurological: No symptoms reported Pulmonary/Respiratory: Denies shortness of breath or cough Cardiovascular: Denies chest pain, palpitation, syncope, Gastrointestinal: No symptom reported Genitourinary: No symptom reported Musculoskeletal: No symptom reported Skin: No symptom reported Psychiatric: No symptom reported Endocrine: No symptom reported Hematologic/Lymphatic: No symptom reported Vital Signs Vital Signs Date Time Temp Pulse Resp B/P (MAP) Pulse Ox O2 Delivery O2 Flow Rate FiO2 09/30/24 13:00 98.7 60 19 124/91 (102) 99 98.7 09/30/24 08:00 Room Air* 0 21 Physical Exam GENERAL: Alert and oriented x 3. No acute distress. EYES: PERRL, EOMI. Anicteric. HENT: Moist mucous membranes. LUNGS: Clear to auscultation bilaterally. CARDIOVASCULAR: Irregular rate and rhythm. ABDOMEN: Soft, nontender and nondistended. EXTREMITIES: No edema. NEUROLOGIC: No focal neurological deficits. SKIN: Warm, dry. Labs/Diagnostic Data Labs Test 09/30/24 11:16 09/30/24 06:38 09/29/24 05:17 09/28/24 21:35 Range/Units POC Glucose 121 H 70-106 mg/dl White Blood Count 12.2 #H 4.4-10.8 10^3/uL Red Blood Count 4.47 L 4.5-5.90 10^6/uL Hemoglobin 13.9 13.5-17.5 g/dL Hematocrit 40.4 L 41.0-53.0 % Mean Corpuscular Volume 90.4 80.0-100.0 fL Mean Corpuscular Hemoglobin 31.1 28.0-32.0 pg Mean Corpuscular Hemoglobin Concent 34.4 32.0-36.0 g/dL Red Cell Distribution Width 13.7 11.8-14.3 % Platelet Count 162 140-450 10^3/uL Mean Platelet Volume 8.3 6.9-10.8 fL Neutrophils (%) (Auto) 89.2 H 37.0-80.0 % Lymphocytes (%) (Auto) 4.9 L 10.0-50.0 % Monocytes (%) (Auto) 5.8 0.0-12.0 % Eosinophils (%) (Auto) 0.0 0.0-7.0 % Basophils (%) (Auto) 0.1 0.0-2.0 % Neutrophils # (Auto) 10.8 H 1.6-8.6 10 ^3/uL Lymphocytes # (Auto) 0.6 0.4-5.4 10 ^3/uL Monocytes # (Auto) 0.7 0-1.3 10 ^3/uL Eosinophils # (Auto) 0 0-0.8 10 ^3/uL Basophils # (Auto) 0 0-0.2 10 ^3/uL Nucleated Red Blood Cells 0.0 % Sodium Level 141 136-145 mmol/L Potassium Level 4.0 3.5-5.1 mmol/L Chloride Level 108 H 98-107 mmol/L Carbon Dioxide Level 24 20-31 mmol/L Anion Gap 9 5-15 Blood Urea Nitrogen 17 9-23 mg/dL Creatinine 1.00 0.700-1.30 mg/dL Glomerular Filtration Rate Calc 92 >90 mL/min BUN/Creatinine Ratio 17.0 10.0-20.0 Serum Glucose 104 74-106 mg/dL Hemoglobin A1c 5.6 <5.7 % A1C Calcium Level 9.0 8.7-10.4 mg/dL Triglycerides Level 90 < 150 mg/dL Cholesterol Level 110 < 200 mg/dL LDL Cholesterol 63 < 100 mg/dL HDL Cholesterol 28 L 40-59 mg/dL Thyroid Stimulating Hormone (TSH) 3.43 0.55-4.78 uIU/mL Prothrombin Time 11.8 9.3-11.8 sec Prothrombin Time INR 1.13 0.9-1.15 Activated Partial Thromboplast Time 30.2 24.5-34.5 SEC Total Bilirubin 0.8 0.2-1.0 mg/dL Aspartate Amino Transferase (AST) 20 <34 U/L Alanine Aminotransferase (ALT) 12 7-40 U/L Alkaline Phosphatase 45 L 46-116 U/L Total Protein 5.3 L 5.7-8.2 g/dL Albumin 3.4 3.2-4.8 g/dL Urine Color Yellow Yellow Urine Clarity Clear Clear Urine pH 6.0 5.0-9.0 Urine Specific [place] > 1.050 H 1.001-1.035 Urine Protein 1+ H Negative Urine Ketones Trace Negative Urine Blood Trace H Negative /uL Urine Nitrite Negative Negative Urine Bilirubin Negative Negative Urine Urobilinogen Normal Negative mg/dL Urine Leukocyte Esterase Negative Negative /uL Urine RBC 2 0 - 3 /hpf Urine Microscopic WBC 1 0-3 /HPF Urine Squamous Epithelial Cells Few <5 /hpf Urine Bacteria None seen None Seen /hpf Urine Glucose Normal Normal mg/dL Test 09/28/24 17:08 09/28/24 09:28 Range/Units Lactic Acid Level 1.4 0.4-2.0 mmol/L Differential Total Cells Counted 100.0 100 Neutrophils % (Manual) 79 37.0-80.0 Band Neutrophils % (Manual) 12 Lymphocytes % (Manual) 6 L 10.0-50.0 Monocytes % (Manual) 3 0-12 Eosinophils % (Manual) 0 0-7 Basophils % (Manual) 0 0.0-2.0 Metamyelocytes % (manual) 0 Myelocytes % (Manual) 0 Promyelocytes % (Manual) 0 Blast Cells % (Manual) 0 Reactive Lymphocytes 0 Platelet Estimate Adequate Microbiology Date/Time Source Procedure Growth Status 09/29/24 08:48 Abdomen Gram Stain - Final Resulted 09/29/24 08:48 Abdomen Anaerobic Culture - Preliminary Resulted 09/29/24 08:48 Abdomen Aerobic Culture - Preliminary Resulted 09/28/24 17:08 Blood Blood Culture - Preliminary NO GROWTH AFTER 24 HOURS OF INCUBATION. Resulted Assessment Bradycardia. Sepsis. Appendicitis s/p appendectomy. Plan/Recommendation I agree with your ongoing assessment and care of plan. Patient has been seen by Lidia Curtis NP on my behalf, her and I discussed the plan with the patient. Sinus bradycardia noted on initial EKG, patient remains asymptomatic Telemetry review over the past 24 hours shows no bradyarrhythmia, tachyarrhythmia, or evidence of sick sinus syndrome. Order TSH to evaluate for hypothyroidism, lipid panel to assess for dyslipidemia, A1c to evaluate for diabetes Order transthoracic echocardiogram to assess for structural cardiac abnormalities Additional plan as per the hospital course. Plan discussed with: Patient NYHA 2 Physical activity limitations: NA Date of Service: Sep 30, 2024 Billing Provider: CINDY CHIANG MD Cardiology Common Codes: 59312-BVMARIX INP/OBS CARE (High) Cardiology Consultation Codes: [id number] CONSULT <45MIN CINDY CHIANG MD Sep 30, 2024 14:33
[2024-10-01 01:00] VITALS: BP 115/88; PULSE 60; RESP 18; TEMP 97.8; O2SAT 96
[2024-10-01 04:57] VITALS: BP 123/82; PULSE 67; RESP 18; TEMP 97.8; O2SAT 96
[2024-10-01 06:38] LABS: Basophils # (auto) 0 10 ^3/uL (0-0.2); Basophils % (auto) 0.1 % (0.0-2.0); Eosinophils # (auto) 0 10 ^3/uL (0-0.8); Eosinophils % (auto) 0.3 % (0.0-7.0); Hematocrit 45.9 % (41.0-53.0); Hemoglobin 15.8 g/dL (13.5-17.5); Lymphocytes # (auto) 1.5 10 ^3/uL (0.4-5.4); Lymphocytes % (auto) 12.4 % (10.0-50.0); Mean Corpuscular Hgb Conc. 34.4 g/dL (32.0-36.0); Mean Corpuscular Volume 90.1 fL (80.0-100.0); Monocytes # (auto) 0.9 10 ^3/uL (0-1.3); Monocytes % (auto) 7.5 % (0.0-12.0); Neutrophils # (auto) 9.6 10 ^3/uL (1.6-8.6); Neutrophils % (auto) 79.7 % (37.0-80.0); Platelet Count (auto) 211 10^3/uL (140-450); Red Cell Distribution Width 13.5 % (11.8-14.3); White Blood Cell 12.1 10^3/uL (4.4-10.8)
[2024-10-01 06:47] LABS: Anion Gap 10 (5-15); Carbon Dioxide 25 mmol/L (20-31); Chloride 104 mmol/L (98-107); Potassium 3.9 mmol/L (3.5-5.1); Sodium 139 mmol/L (136-145)
[2024-10-01 06:48] LABS: Calcium 9.5 mg/dL (8.7-10.4)
[2024-10-01 06:53] LABS: BUN/Creatinine Ratio 11.9 (10.0-20.0); Blood Urea Nitrogen 13 mg/dL (9-23); Glucose 101 mg/dL (74-106)
[2024-10-01 08:00] VITALS: PULSE 60
[2024-10-01] MEDS ORDERED: LEVO500T91 PO (10:56)
[2024-10-01] MEDS ORDERED: METR-344 PO (10:56)
[2024-10-01] MEDS ORDERED: HYDR-4902 PO (10:56)
--- NOTE | 2024-10-01 11:03 | DVHDS2 ---
Discharge Summary Date of Admission Sep 28, 2024 at 16:31 Date of Discharge: Oct 01, 2024 Admitting Diagnosis Acute appendicitis Labs/Diagnostic Data: Laboratory Results Test 10/01/24 05:58 10/01/24 05:40 09/30/24 06:38 09/29/24 05:17 White Blood Count 12.1 10^3/uL (4.4-10.8) Red Blood Count 5.10 10^6/uL (4.5-5.90) Hemoglobin 15.8 g/dL (13.5-17.5) Hematocrit 45.9 % (41.0-53.0) Mean Corpuscular Volume 90.1 fL (80.0-100.0) Mean Corpuscular Hemoglobin 31.0 pg (28.0-32.0) Mean Corpuscular Hemoglobin Concent 34.4 g/dL (32.0-36.0) Red Cell Distribution Width 13.5 % (11.8-14.3) Platelet Count 211 10^3/uL (140-450) Mean Platelet Volume 7.8 fL (6.9-10.8) Neutrophils (%) (Auto) 79.7 % (37.0-80.0) Lymphocytes (%) (Auto) 12.4 % (10.0-50.0) Monocytes (%) (Auto) 7.5 % (0.0-12.0) Eosinophils (%) (Auto) 0.3 % (0.0-7.0) Basophils (%) (Auto) 0.1 % (0.0-2.0) Neutrophils # (Auto) 9.6 10 ^3/uL (1.6-8.6) Lymphocytes # (Auto) 1.5 10 ^3/uL (0.4-5.4) Monocytes # (Auto) 0.9 10 ^3/uL (0-1.3) Eosinophils # (Auto) 0 10 ^3/uL (0-0.8) Basophils # (Auto) 0 10 ^3/uL (0-0.2) Nucleated Red Blood Cells 0.0 % Sodium Level 139 mmol/L (136-145) Potassium Level 3.9 mmol/L (3.5-5.1) Chloride Level 104 mmol/L (98-107) Carbon Dioxide Level 25 mmol/L (20-31) Anion Gap 10 (5-15) Blood Urea Nitrogen 13 mg/dL (9-23) Creatinine 1.09 mg/dL (0.700-1.30) Glomerular Filtration Rate Calc 83 mL/min (>90) BUN/Creatinine Ratio 11.9 (10.0-20.0) Serum Glucose 101 mg/dL (74-106) Calcium Level 9.5 mg/dL (8.7-10.4) POC Glucose 126 mg/dl (70-106) Hemoglobin A1c 5.6 % A1C (<5.7) Triglycerides Level 90 mg/dL (< 150) Cholesterol Level 110 mg/dL (< 200) LDL Cholesterol 63 mg/dL (< 100) HDL Cholesterol 28 mg/dL (40-59) Thyroid Stimulating Hormone (TSH) 3.43 uIU/mL (0.55-4.78) Prothrombin Time 11.8 sec (9.3-11.8) Prothrombin Time INR 1.13 (0.9-1.15) Activated Partial Thromboplast Time 30.2 SEC (24.5-34.5) Total Bilirubin 0.8 mg/dL (0.2-1.0) Aspartate Amino Transferase (AST) 20 U/L (<34) Alanine Aminotransferase (ALT) 12 U/L (7-40) Alkaline Phosphatase 45 U/L (46-116) Total Protein 5.3 g/dL (5.7-8.2) Albumin 3.4 g/dL (3.2-4.8) Test 09/28/24 21:35 09/28/24 17:08 09/28/24 09:28 Urine Color Yellow (Yellow) Urine Clarity Clear (Clear) Urine pH 6.0 (5.0-9.0) Urine Specific [place] > 1.050 (1.001-1.035) Urine Protein 1+ (Negative) Urine Ketones Trace (Negative) Urine Blood Trace /uL (Negative) Urine Nitrite Negative (Negative) Urine Bilirubin Negative (Negative) Urine Urobilinogen Normal mg/dL (Negative) Urine Leukocyte Esterase Negative /uL (Negative) Urine RBC 2 /hpf (0 - 3) Urine Microscopic WBC 1 /HPF (0-3) Urine Squamous Epithelial Cells Few /hpf (<5) Urine Bacteria None seen /hpf (None Seen) Urine Glucose Normal mg/dL (Normal) Lactic Acid Level 1.4 mmol/L (0.4-2.0) Differential Total Cells Counted 100.0 (100) Neutrophils % (Manual) 79 (37.0-80.0) Band Neutrophils % (Manual) 12 Lymphocytes % (Manual) 6 (10.0-50.0) Monocytes % (Manual) 3 (0-12) Eosinophils % (Manual) 0 (0-7) Basophils % (Manual) 0 (0.0-2.0) Metamyelocytes % (manual) 0 Myelocytes % (Manual) 0 Promyelocytes % (Manual) 0 Blast Cells % (Manual) 0 Reactive Lymphocytes 0 Platelet Estimate Adequate Other Laboratory Tests 10/01/24 05:58 Brief Hx & Hospital Course: History of Present Illness 49-year-old male no surgical history no medical problems chief complaint patient comes in with abdominal pain since yesterday it was a sudden onset of the pain he denies any fever no black stools or blood in his stools no vomiting blood. Patient states that he has never had this type of pain before when evaluating patient's labs and imaging morphine was given Zofran Flagyl normal saline cefepime Pepcid white count was 17.4 lactate was 3.[address] scan of the abdomen pelvis shows uncomplicated appy appendectomy with no perforation and small amount of free pelvic fluid general surgery was consulted for evaluation patient denies drinking smoking or drug use he is currently working with these findings we will admit patient ask for General surgery evaluation continue pain management and antibiotic care. Course of hospitalization: Patient was taken to the operating room after being assessed in the emergency room. Postoperatively, patient was found to have bradycardia. Patient had cardiology consultation as well as echocardiogram. Patient's heart rate improved with IV hydration. No further interventions were needed. Continue antibiotic therapy was provided in the form of Ancef and Flagyl. Patient was noted to have serosanguineous fluid from KAYLIE drain. Incision is dry and intact. Patient is tolerating a regular diet, having bowel movements, as well as having sufficient pain control with oral narcotics. Patient will be discharged home once cleared by surgery. Patient will be continued on antibiotic therapy with Levaquin and Flagyl for seven days. He will also be provided pain management in the form of [place] 5/325 as needed every 8 hours. He will follow up with the discharge Clinic in one week as well as postop appointment with Dr. Sharma. Patient was agreeable with discharge plan. All questions answered Physical exam General: Alert and Oriented x3. No acute distress. Well-nourished. Eyes: EOMI. Anicteric. HENT: Moist mucous membranes. Lungs: Clear to auscultation bilaterally. No accessory muscle use. Cardiovascular: Regular rate and rhythm. No murmur. No JVD. Abdomen: Soft, non-tender and non-distended. No palpable masses. Abdominal wound dry and intact Extremities: No edema. Non-tender. Skin: No rashes or lesions. Warm. Neurologic: No focal neurological deficits. CN II-XII grossly intact, but not individually tested. Psychiatric: Cooperative. Appropriate mood and affect. Total time spent with patient discussing and formulating plan of care: 35 minutes. This medical document was created using an electronic medical record system with [employer] system. Although this document has been carefully reviewed, there may still be some phonetic and typographical errors. These areas are purely typographical due to imperfections of the software programs, and do not reflect any compromise in the patient's medical care. Consults/Reason for consult General surgery: Acute appendicitis Cardiology: Bradycardia Operations or Procedures 09/29/2024: Laparoscopic appendectomy Condition at Discharge: Fair Final Diagnosis/Problems List Acute appendicitis Secondary diagnosis: Sepsis Bradycardia, anesthesia induced Discharge Disposition: Home Discharge Instruct/Medications Diet: Regular Activity: No Restrictions, As Tolerated Follow Up/Referral: Follow up with Dr. Sharma in 1-2 weeks Discharge Clinic in one week Medications: Levaquin 500 mg p.o. daily x7 days Flagyl 500 mg p.o. 3 times a day x7 days [place] 5/325 q.8 hours as needed for [id number] pain 36 Discharge Statement: "Patient was advised to return to the ER or call 911 if any headaches, dizziness, shortness of breath, chest pain, abdominal pain, bleeding, fevers, or worsening of medical condition. Patient was counseled about treatment plan, medications, possible side effects, patientverbalized understanding. All questions were answered to the best of my ability. This discharge took greater then 30 minutes in planning, reviewing documentation, counseling the patient, and discussing with other team members." ASSESSMENT ASSESSMENT Assessment Acute appendicitis Date of Service: Oct 01, 2024 Billing Provider: MITA NEUMANN NP Common Visit Codes: [id number]-JYN/[id number] DISCH DAY >30min MITA NEUMANN NP Oct 01, 2024 11:03
[2024-10-01 11:46] VITALS: TEMP 36.6
--- NOTE | 2024-10-01 12:18 | DVHPN2 ---
Progress Note Date Seen: Oct 01, 2024 Medical Necessity Reason Pt with a Central, PICC or Fol: No Objective vital signs Vital Sign Date Time Temp Pulse Resp B/P (MAP) Pulse Ox O2 Delivery O2 Flow Rate FiO2 10/01/24 11:46 36.6 10/01/24 08:00 Room Air* 0 21 10/01/24 04:57 67 18 123/82 (96) 96 Total Intake and Output 09/30/24 09/30/24 10/01/24 15:00 23:00 07:00 Intake Total 100 ml 500 ml 710 ml Output Total 300 ml 80 ml Balance 100 ml 200 ml 630 ml medications Current Medications Medications Dose Ordered Sig/Murali Route Start Time Stop Time Status Last Admin Dose Admin Temazepam 15 mg QHSP PRN PO 09/28/24 16:45 Docusate Sodium 100 mg BIDPRN PRN PO 09/28/24 16:45 Morphine Sulfate 2 mg Q4HPRN PRN IV 09/28/24 16:45 09/30/24 05:01 2 MG Nitroglycerin 0.4 mg Q5MINP PRN SL 09/28/24 16:45 Diagnostic Test (Pha) 1 strip Q6HR 09/28/24 18:00 10/01/24 05:46 1 STRIP Insulin Human Regular Q6HR SC 09/28/24 18:00 09/30/24 05:51 2 UNITS Dextrose 50 ml UD PRN IV 09/28/24 16:45 Potassium Chloride/Dextrose/ Sod Cl 1,000 ml @ 120 mls/hr Q8H20M IV 09/29/24 08:45 10/01/24 03:35 120 MLS/HR Cefazolin Sodium/ Dextrose 50 ml @ 50 mls/hr Q8HR IV 09/29/24 14:00 10/01/24 05:32 50 MLS/HR Metronidazole 100 ml @ 100 mls/hr Q8HR IV 09/29/24 14:00 10/01/24 05:47 100 MLS/HR Ondansetron HCl 4 mg Q4HPRN PRN IV 09/29/24 08:45 Pantoprazole Sodium 40 mg DAILY IV 09/29/24 10:00 10/01/24 10:21 40 MG Acetaminophen/ Hydrocodone Bitart 1 tab Q6HPRN PRN PO 09/30/24 11:45 10/01/24 10:25 1 TAB laboratory and microbiology Laboratory Tests 10/01/24 05:58 Test 10/01/24 05:58 Range/Units Serum Glucose 101 74-106 mg/dL Problem List/Assessment/Plan Problem List/Assessment/Plan 10/01/24 doing well, afebrile, normotensive, feels much better,abdomen appropriately tender, wounds clean and well approximated, drainage KAYLIE drain serous, instructions given, cleared for discharge Plan discussed with: Patient Dietary Evaluation Review Comments: 1) Encourage optimal PO intake 2) Advance to cardiac diet when medically feasible, pending ST approval 3) Follow-up with gastroenterology and cardiology 4) Continue to monitor I&O, labs, and skin integrity Expected Outcomes/Goals: 1) appetite and labs to improve 2) diet to advance 3) f/u in 3-5 days AMITA WHITE MD Oct 01, 2024 12:18
[2024-10-01 12:46] VITALS: BP 100/77; PULSE 66; RESP 18; TEMP 98; O2SAT 97
--- NOTE | 2024-10-01 22:52 | DVHPN2 ---
Progress Note - Dictate Date Seen: Oct 01, 2024 Medical Necessity Reason Pt with a Central, PICC or Fol: No Subjective Patient was seen and evaluated in follow-up. Patient is c/o incision site pain. Echo shows an EF of 60%. HDL 28. Patient is cardiac stable for discharge. Telemetry reviewed. vital signs Vital Sign Date Time Temp Pulse Resp B/P (MAP) Pulse Ox O2 Delivery O2 Flow Rate FiO2 10/01/24 12:46 98.0 66 18 100/77 (85) 97 98.0 10/01/24 08:00 Room Air* 0 21 Total Intake and Output 09/30/24 09/30/24 10/01/24 15:00 23:00 07:00 Intake Total 100 ml 500 ml 710 ml Output Total 300 ml 80 ml Balance 100 ml 200 ml 630 ml objective GENERAL: Alert and oriented x 3. No acute distress. EYES: PERRL, EOMI. Anicteric. HENT: Moist mucous membranes. LUNGS: Clear to auscultation bilaterally. CARDIOVASCULAR: Irregular rate and rhythm. ABDOMEN: Soft, nontender and nondistended. EXTREMITIES: No edema. NEUROLOGIC: No focal neurological deficits. SKIN: Warm, dry. laboratory and microbiology Laboratory Tests 10/01/24 05:58 Test 10/01/24 05:58 Range/Units Serum Glucose 101 74-106 mg/dL Problem List Bradycardia. Sepsis. Appendicitis s/p appendectomy. Assessment/Plan Continued all current supportive medical care. IV antibiotics as ordered. GI prophylactics. [place] and Morphine for pain management. Additional plan as per the hospital course. Dietary Evaluation Review Comments: 1) Encourage optimal PO intake 2) Advance to cardiac diet when medically feasible, pending ST approval 3) Follow-up with gastroenterology and cardiology 4) Continue to monitor I&O, labs, and skin integrity Expected Outcomes/Goals: 1) appetite and labs to improve 2) diet to advance 3) f/u in 3-5 days Plan discussed with: Patient CINDY CHIANG MD Oct 01, 2024 16:54
--- NOTE | 2024-10-03 07:29 | ECG ---
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
== END 2024-10-01 14:20 | disposition home or self-care (01) | DRG 710 ==
LOC: ER 08:34 → OVERFLOW 16:31 → CENTRAL 09-29 18:14 → TELE-CENTR 09-29 18:52
PROVIDERS: ADMIT Nurse Practitioner Acute Care; ATTEND Nurse Practitioner Acute Care
PROC: 0D9J4ZZ Drainage of Appendix, Percutaneous Endoscopic Approach (ICD-10-PCS; 2024-09-29)
PROC: 0DTJ4ZZ Resection of Appendix, Percutaneous Endoscopic Approach (ICD-10-PCS; principal; 2024-09-29 07:32)
DX: A41.9 Sepsis, unspecified organism (principal); E87.20 Acidosis, unspecified; K35.31 Acute appendicitis with localized peritonitis and gangrene, without perforation; D72.829 Elevated white blood cell count, unspecified; R00.1 Bradycardia, unspecified; Z80.0 Family history of malignant neoplasm of digestive organs; Z82.49 Family history of ischemic heart disease and other diseases of the circulatory system; Z90.49 Acquired absence of other specified parts of digestive tract; Z79.899 Other long term (current) drug therapy; T41.45XA Adverse effect of unspecified anesthetic, initial encounter; Y92.89 Other specified places as the place of occurrence of the external cause; R71.0 Precipitous drop in hematocrit
CPT/HCPCS: 36415; 74177; 80048; 80053; 80061; 81001; 82962; 83036; 83605; 84443; 85007; 85025; 85027; 85610; 85730; 86850; 86900; 86901; 87040; 87070; 87075; 87205; 93005; 93306; 96365; 96375; 99291; G0378; J0131; J0692; J1100; J1815; J2250; J2405; J2470; J2704; J3490